=== PATIENT | female | born 1955 | race Caucasian/White ===

== ENCOUNTER 2023-04-25 15:06 | Emergency (ER) | payer BC ==
[~2023-04-25] VITALS: Ht 170.2 cm; Wt 63.5 kg
[2023-04-25] MEDS ORDERED: ACETAMINOPHEN ES 500 MG TABLET PO ONE (16:15)
[2023-04-25] MEDS ORDERED: ACETAMINOPHEN ES 500 MG TABLET ONE (16:50)
[2023-04-25] MEDS ORDERED: HYDR-3980 PO (18:58)
[2023-04-25] MEDS ORDERED: ONDA4TAB11 PO (18:58)
[2023-04-25] MEDS ORDERED: AMOX-430 PO (18:58)
[2023-04-25 19:09] VITALS: BP 134/72; O2SAT 100
== END 2023-04-25 19:11 | disposition home or self-care (01) ==
LOC: ER 15:11
DX: S02.40FA Zygomatic fracture, left side, initial encounter for closed fracture (principal); S02.32XA Fracture of orbital floor, left side, initial encounter for closed fracture; S02.842A Fracture of lateral orbital wall, left side, initial encounter for closed fracture; S01.81XA Laceration without foreign body of other part of head, initial encounter; S80.212A Abrasion, left knee, initial encounter; S60.512A Abrasion of left hand, initial encounter; E78.5 Hyperlipidemia, unspecified; Z88.1 Allergy status to other antibiotic agents; Z88.2 Allergy status to sulfonamides; Z88.8 Allergy status to other drugs, medicaments and biological substances; W01.0XXA Fall on same level from slipping, tripping and stumbling without subsequent striking against object, initial encounter; Y93.89 Activity, other specified; Y92.89 Other specified places as the place of occurrence of the external cause; Y99.8 Other external cause status
CPT/HCPCS: 70450; 70486; 73090; 73130; A4663; A9150

== ENCOUNTER 2024-08-21 12:07 | Emergency (ER) | payer BC ==
[~2024-08-21] VITALS: Ht 167.6 cm; Wt 54.4 kg
[~2024-08-21 12:07] MED LIST: AMOX-430 PO; HYDR-3980 PO; ONDA4TAB11 PO
[2024-08-21] MEDS: IBUPROFEN 400 MG TABLET PO ONE (12:38)
[2024-08-21] MEDS: HYDROCODONE/APAP 10-325 MG TABLET PO ONE (12:39)
[2024-08-21] MEDS ORDERED: HYDR-3980 PO ×2 (15:07)
[2024-08-21] MEDS ORDERED: CEFU250T85 PO (15:07)
[2024-08-21 15:28] VITALS: BP 148/75; TEMP 98.7; O2SAT 100
== END 2024-08-21 15:35 | disposition home or self-care (01) ==
LOC: ER 12:07
DX: S00.83XA Contusion of other part of head, initial encounter (principal); E78.5 Hyperlipidemia, unspecified; M43.12 Spondylolisthesis, cervical region; R94.31 Abnormal electrocardiogram [ECG] [EKG]; M47.812 Spondylosis without myelopathy or radiculopathy, cervical region; Z88.1 Allergy status to other antibiotic agents; Z88.2 Allergy status to sulfonamides; Z88.8 Allergy status to other drugs, medicaments and biological substances; Z91.041 Radiographic dye allergy status; W18.39XA Other fall on same level, initial encounter; Y93.89 Activity, other specified; Y92.89 Other specified places as the place of occurrence of the external cause; Y99.8 Other external cause status
CPT/HCPCS: 70450; 70486; 71250; 72125; A4606; A4663